=== PATIENT | male | born 1950 | race Caucasian/White ===

== ENCOUNTER 2016-08-20 06:10 | Day surgery (SDC) | payer OTHER ==
[2016-08-17 15:06] VITALS: BMI 26.6
[~2016-08-20 06:10] MED LIST: LIDOCAINE HCL 2% JELLY 10 ML CARTRIDGE TP ONE; ceFAZolin SODIUM 1 GM VIAL IVPB ONE
[2016-08-20] MEDS ORDERED: LIDOCAINE HCL 2% JELLY 10 ML CARTRIDGE ONE (07:24)
[2016-08-20] MEDS ORDERED: MIDAZOLAM HCL 2 MG/2 ML SINGLE DOSE VIAL ONE (07:34)
[2016-08-20] MEDS ORDERED: ACETAMINOPHEN 1000 MG/100 ML VIAL (NON FORMULARY) IVPB ONE (07:36)
[2016-08-20] MEDS ORDERED: IBUPROFEN 800 MG/8 ML IJ IVPB PRN (07:36)
--- NOTE | 2016-08-20 07:37 | HP ---
History & Physical Update - History History: No Change - Physical Physical: No Change - Assessment Assessment: No Change - Plan Plan: No Change
[2016-08-20] MEDS ORDERED: PROPOFOL 20 ML ONE (07:44)
[2016-08-20] MEDS ORDERED: SUCCINYLCHOLINE CHLORIDE 200 MG/10 ML VIAL ONE (07:44)
[2016-08-20] MEDS ORDERED: DEXTROSE 5%-0.45% SALINE 1,000 ML IV SCH (07:45)
[2016-08-20] MEDS ORDERED: ceFAZolin SODIUM 1 GM VIAL IVPB ONE (07:47)
[2016-08-20] MEDS ORDERED: LIDOCAINE HCL 2% JELLY 10 ML CARTRIDGE TP ONE (08:27)
[2016-08-20] MEDS ORDERED: PROMETHAZINE HCL 25 MG/1 ML VIAL IVPUSH PRN (08:43)
[2016-08-20] MEDS ORDERED: ONDANSETRON 4 MG/2 ML VIAL IVPUSH PRN (08:43)
[2016-08-20] MEDS ORDERED: oxyCODONE HCL 5 MG TABLET PO PRN (08:43)
[2016-08-20] MEDS ORDERED: LACTATED RINGERS SOLUTION 1,000 ML IV SCH (08:45)
[2016-08-20] MEDS ORDERED: ACETAMINOPHEN INJECTION 100 ML IVPB ONE (08:56)
[2016-08-20 09:59] VITALS: TEMP 97.6
[2016-08-20 14:36] VITALS: BP 139/83; PULSE 65
--- NOTE | 2016-08-21 09:00 | PATH ---
Surgical Pathology Report Patient Name: KRISTI SALCEDO Med. Rec. #: [id number] /Age/Gender: 1950 (Age: 65) / M Account: [id number] Location: [facility] Taken: 08/20/2016 Received: 08/20/2016 Reported: 08/21/2016 Physicians: Gregory Rangel M.D. Specimen(s) Received CALCULI Clinical History Stone Final Diagnosis STONE, SITE NOT SPECIFIED, EXTRACTION: CALCULI SUBMITTED FOR CHEMICAL ANALYSIS (gross only). Electronically Signed Joey Amanda M.D. Gross Description Received fresh, labeled with the patient's name and indicated on the requisition to be a stone, is a 0.5 cm greatest dimension hernandez romero, irregular calculus which is sent for chemical analysis. 08/20/201608/20/2016
--- NOTE | 2016-08-21 14:58 | OP ---
DATE OF OPERATION: 08/20/2016 PREOPERATIVE DIAGNOSIS: Left renal calculus, left ureteral calculus. POSTOPERATIVE: IAGNOSIS: Left renal calculus, left ureteral calculus. PROCEDURE: Cystoscopy, left ureteroscopy, laser lithotripsy, and stent placement. ANESTHESIA: General, Dr. Beard. FINDINGS: A large stone in the left kidney. No stone seen in the ureter. DRAINS: A 6 x 26 double-J ureteral stent. PREOPERATIVE INDICATIONS: The patient is a 65-year-old male who presents came to the office 3 days ago complaining of severe left-sided flank pain. CT scan revealed a 5-mm stone in the distal left ureter and a 1.6-cm stone in the left kidney. He comes to the OR today. OPERATION: The patient was brought to the OR, placed on the table in the supine position, given general anesthesia and IV antibiotics and placed in the modified lithotomy position. The groin was prepped and draped sterilely. Cystoscopy was performed. The left ureteral orifice was visualized. The bladder otherwise was unremarkable. The prostate and urethra were normal. A wire was passed up into the left kidney. A dual-lumen catheter was used to evaluate the UO and ureteroscopy was performed. No stones were seen in the distal ureter. A flexible scope was passed into the kidney and a large 16-mm stone was seen. Using the holmium laser fiber, this was broken up into small fragments. Again the course of the ureter appeared to be clear of stones. A 6 x 26 double-J ureteral stent was left in place. Bladder was emptied. The patient was woken up. Rafa [id number]
[2016-08-29 13:06] LABS: COLOR BROWN; SIZE 5X3X3
[2016-08-29 13:07] LABS: CA OXALATE DIHYDRATE 5; NIDUS NO NIDUS VISUALIZED
== END 2016-08-20 11:20 | disposition home or self-care (01) ==
LOC: JASU-SURG 06:10
PROVIDERS: ATTEND Urology
PROC: 0TF48ZZ Fragmentation in Left Kidney Pelvis, Via Natural or Artificial Opening Endoscopic (ICD-10-PCS; principal; 2016-08-20 07:30)
PROC: 0T778DZ Dilation of Left Ureter with Intraluminal Device, Via Natural or Artificial Opening Endoscopic (ICD-10-PCS; 2016-08-20 07:30)
DX: N20.0 Calculus of kidney (principal)
CPT/HCPCS: 36415; 76000-TC; 82360; 88300-TC; 94760